=== PATIENT | female | born 1950 | race Caucasian/White ===

== ENCOUNTER 2017-01-14 07:49 | Emergency (ER) | payer OTHER ==
[2017-01-14 08:05] VITALS: BP 118/53; PULSE 79; RESP 18; TEMP 97.9; O2SAT 97
--- NOTE | 2017-01-14 08:06 | UCPHY ---
H & P Time Seen by Provider: 01/14/17 08:02 Patient Type: New HPI/ROS: This patient was walking in her kitchen stubbed the toe against an immovable object with pain to the 4th toe that was moderate. This occurred 2 nights ago and subsequently she has developed ecchymosis and swelling. There is minimal pain at rest but moderate pain with walking or other movement of the toe. She has associated tenderness. No other exacerbating or alleviating factors are noted. ROS: No numbness or tingling. No other injuries. 5 point ROS is otherwise negative. Physical Exam: Physical Exam Vital signs are normal. General: No acute distress Eyes: Pupils equal and react to light. Extraocular motions are intact. Lungs: No respiratory distress. Cardiac: Brisk capillary refill is intact throughout. Skin: No rash or pallor. Extremities: Atraumatic normal except for right foot Right foot: Patient has moderate swelling to the proximal phalanx of the right 4th toe with adjacent ecchymosis to the dorsum of the foot that extends 4 cm proximally and 3 cm across. There is no significant distal metatarsal tenderness. Neuro: Alert with no sensorimotor deficits in the affected digit. Initial differential diagnosis: Toe sprain versus contusion versus fracture Constitutional: Initial Vital Signs Temperature (C) 36.6 C 01/14/17 08:03 Heart Rate 79 01/14/17 08:03 Respiratory Rate 18 01/14/17 08:03 Blood Pressure 118/53 L 01/14/17 08:03 O2 Sat (%) 97 01/14/17 08:03 O2 Delivery Mode Room Air Allergies/Adverse Reactions: No Known Allergies Allergy (Unverified 01/14/17 08:02) Home Medications: Medication Instructions Recorded NK [No Known Home Meds] 01/14/17 MDM/Departure - Depart Disposition: Home, Routine, Self-Care Clinical Impression: Toe fracture, right Qualifiers: Encounter type: initial encounter Toe: lesser toe Fracture type: closed Phalanx : proximal Fracture alignment: nondisplaced Qualified Code(s): S92.514A - Nondisplaced fracture of proximal phalanx of right lesser toe(s), initial encounter for closed fracture Condition: Good Instructions: Toe Fracture (ED) Additional Instructions: Diagnosis: Right 4th toe fracture Plan: Gabriel tape the toe and wear a postop shoe or stiff-soled shoe until symptoms resolve. Typically this takes 3-4 weeks to heal. Limit activity until symptoms resolve. Ibuprofen and/or Tylenol if needed for pain control. Return for any significant worsening Referrals: Char Geller MD [Primary Care Provider] - As per Instructions - PQRS PQRS Measurement: 134: Depression screening and followup, PRIME -PHQ2 (12 years and older) Over the last 2 weeks, how often have you been bothered by any of the following problems? 1. Feeling down, depressed, or hopeless? 2. Little interest or pleasure in doing things? Patient answered no to both 1 and 2 130: Documentation of medications. Reviewed all patient medications, doses, route and frequency. 226: Do you smoke? [No.] 47: 65 and older: Advanced care planning. Patient designates surrogate decision maker as spouse 51: 18 years old and older with diagnosis of COPD, spirometry performance. NA 52: 18 years old and older with COPD and symptoms of COPD or FEV1<60% predicted prescribed a B Agonist. NA
== END 2017-01-14 08:46 | disposition home or self-care (01) ==
LOC: CED 07:49
DX: S92.514A Nondisplaced fracture of proximal phalanx of right lesser toe(s), initial encounter for closed fracture (principal); W22.09XA Striking against other stationary object, initial encounter; Y92.010 Kitchen of single-family (private) house as the place of occurrence of the external cause
CPT/HCPCS: 73660; G0463; 99203-PO

== ENCOUNTER 2017-08-29 13:32 | Emergency (ER) | payer OTHER ==
--- NOTE | 2017-08-29 14:56 | EDPHY ---
H & P Time Seen by Provider: 08/29/17 14:40 HPI/ROS: CHIEF COMPLAINT: Syncope, head injury HISTORY OF PRESENT ILLNESS: 67-year-old female presents with a head injury after a syncopal episode 1 week ago. 2 weeks ago she was on a road trip and started feeling ill. She had loss of appetite, vomiting, a vague mild underlying headache, associated with loss of balance and fatigue. 1 episode of subjective fever. No dizziness or room-spinning sensation. She returned from her trip 1 week ago, was in the bathroom and her found her on the floor unresponsive. She thinks that she had a syncopal episode. Since then she has gradually been getting better and her balance has returned to normal. However she continues to have low energy and not be quite herself. She also has a mild and persistent headache, unusual for her. REVIEW OF SYSTEMS: Constitutional: no chills Eyes: No visual changes ENT: No sore throat Respiratory: No cough, no shortness of breath Cardiac: No chest pain Gastrointestinal: no abdominal pain Genitourinary: no dysuria Musculoskeletal: No leg pain or swelling Skin: No rash Neurological: no numbness, no weakness Psychiatric: No depression Past Medical/Surgical History: Denies Social History: Smoking Status: Never smoked Physical Exam: General Appearance: Alert, pleasant Eyes: Pupils equal and round, no conjunctival pallor or injection ENT, Mouth: Mucous membranes moist Neck: Normal inspection, nontender, range of motion without pain Respiratory: Lungs are clear to auscultation Cardiovascular: Regular rate and rhythm Gastrointestinal: Abdomen is soft and nontender Neurological: Alert, oriented x3, cranial nerves II through XII intact, motor 5 /5, sensory intact to light touch, normal gait Skin: Warm and dry Extremities: normal inspection Psychiatric: Mood and affect normal Constitutional: Initial Vital Signs Temperature (C) 36.8 C 08/29/17 13:44 Heart Rate 80 08/29/17 13:44 Respiratory Rate 17 08/29/17 13:44 Blood Pressure 120/76 08/29/17 13:44 O2 Sat (%) 76 L 08/29/17 13:44 O2 Delivery Mode Room Air Allergies/Adverse Reactions: No Known Allergies Allergy (Unverified 01/14/17 08:02) Home Medications: Medication Instructions Recorded NK [No Known Home Meds] 03/14/17 Medical Decision Making - Diagnostics EKG Interpretation: EKG interpreted by me reveals normal sinus rhythm, rate 72, no ST or T segment changes. ED Course/Re-evaluation: Initial vital signs reviewed, including oxygen saturation of 76% on room air. This is a clerical error and repeat oxygen saturation on room air is 96%. This pt presents with multiple sx, all of which have resolved except for mild MUNOZ. Multiple etiologies considered, including infectious, CVA/ICH, cardiopulm, metabolic. Will proceed with w/u to evaluate possible causes. EKG performed to r/u dysrhythmia/ischemia, and is normal. CT head normal; no evidence of CVA, doubt TIA, given multitude of sx and clinically doubt concussion. No evidence of infection/metabolic etiology. Has mild anemia, doubt this is causing sx. Results d/w pt, reassured, states she already feels better. Will f/u PCP. Differential Diagnosis: includes though not limited to viral syndrome, vertigo, CVA, dysrhythmia, metabolic disorder. - Data Points Laboratory Results: Laboratory Results 08/29/17 15:45 08/29/17 15:45 Departure - Departure Disposition: Home, Routine, Self-Care Clinical Impression: Syncope Condition: Good Instructions: Syncope (ED) Referrals: Char Geller MD [Primary Care Provider] - 2-3 days without fail
--- NOTE | 2017-08-29 15:00 | CPEKG ---
Heart Rate: 68 RR Interval: 882 P-R Interval: 168 QRSD Interval: 76 QT Interval: 408 QTC Interval: 434 P [place]: 72 QRS [place]: 33 T Wave [place]: 46 EKG Severity - NORMAL ECG - EKG Impression: SINUS RHYTHM Electronically Signed By: Yuridia Daniel 29-Aug-2017 21:12:43
[2017-08-29 15:07] LABS: COLOR PALE YELLOW; LEUKOCYTE ESTERASE,URINE NEGATIVE (NEGATIVE); NITRITE,URINE NEGATIVE (NEGATIVE)
[2017-08-29 15:53] LABS: % IMMATURE GRANULYOCYTES 0.6 % (0.0-1.1); ABSOLUTE IMMATURE GRANULOCYTES 0.04 10^3/uL (0.00-0.10); ADD DIFF? NO; ADD MORPH? NO; ADD SCAN? NO; ATYPICAL LYMPHOCYTE FLAG 0 (0-99); FRAGMENT RBC FLAG 0 (0-99); HEMATOCRIT 35.3 % (38.0-47.0); HEMOGLOBIN 11.9 g/dL (12.6-16.3); LEFT SHIFT FLG 0 (0-99); LIPEMIA HEMOLYSIS FLAG 80 (0-99); MEAN CELL HEMOGLOBIN 29.5 pg (27.9-34.1); MEAN CELL HEMOGLOBIN CONCENTR. 33.7 g/dL (32.4-36.7); MEAN CELL VOLUME 87.4 fL (81.5-99.8); PLATELET CLUMPS FLAG 0 (0-99); PLATELET COUNT 265 10^3/uL (150-400); RED BLOOD CELL COUNT 4.04 10^6/uL (4.18-5.33); RED CELL DISTRIBUTION WIDTH 11.5 % (11.5-15.2)
[2017-08-29 16:50] LABS: ANION GAP 13 mEq/L (8-16); CARBON DIOXIDE 22 mEq/l (22-31); CHLORIDE 103 mEq/L (97-110); CREATININE 0.7 mg/dL (0.6-1.0); GLOMERULAR FILTRATION RATE > 60; GLUCOSE 86 mg/dL (70-100); SODIUM 138 mEq/L (134-144)
[2017-08-29 17:20] VITALS: BP 114/64; PULSE 63; RESP 18; TEMP 98.6; O2SAT 100
== END 2017-08-29 17:21 | disposition home or self-care (01) ==
DX: R55 Syncope and collapse (principal)